=== PATIENT | female | born 1995 | race Caucasian/White ===

== ENCOUNTER → 2017-07-17 | Outpatient (CLI) | payer MEDICAID, OTHER | LOC: HPND 14:19 | PROVIDERS: ATTEND Obstetrics & Gynecology | DX: O36.5920 Maternal care for other known or suspected poor fetal growth, second trimester, not applicable or unspecified (principal); R63.6 Underweight | CPT/HCPCS: 76816 ==

== ENCOUNTER 2017-09-24 03:03 | Emergency (ER) | payer MEDICAID ==
--- NOTE | 2017-09-24 05:18 | PD ---
HPI Chief Complaint Contractions Travel History International Travel<30 Days: No Contact w/Intl Traveler<30Days: No Known Affected Area: No History of Present Illness HPI 22-year-old , IUP at 38.1 care uncomplicated Patient presents reporting onset of painful contractions at 11:45 PM last night. They increased in intensity and frequency to about every 6-8 minutes prior to her arrival. When she initially arrived she felt some contractions more frequently however she reports they have spaced out since she arrived. She reports that she was checked in the office yesterday and was 3 cm dilated. There were no aggravating or alleviating factors to the contractions and no attempted treatments. She denies any leaking fluid or vaginal bleeding. She reports good movement. She has no other complaints. Weeks Gestation: 38 Para: 0 : 1 History Past Medical History Medical History: Denies Significant Hx Obstetric History Obstetric History Past Surgical History Surgical History: No Previous Surgery Family History Family History: Negative Social History Alcohol Use: No Tobacco Use: No Substance Abuse: No Review of Systems Except as stated in HPI: all other systems reviewed are Neg Physical Exam Narrative GENERAL: Well-nourished, well-developed patient. Patient appears to be comfortable and does not appear uncomfortable at this time even during contractions SKIN: Warm and dry. HEAD: Normocephalic and atraumatic. EYES: No scleral icterus. No injection or drainage. ENT: No nasal drainage noted. Mucous membranes pink. Airway patent. NECK: Supple, trachea midline. No JVD. CARDIOVASCULAR: Regular rate and rhythm without murmurs, gallops, or rubs. RESPIRATORY: Breath sounds equal bilaterally. No accessory muscle use. BREASTS: Deferred ABDOMEN/GI: Abdomen soft, non-tender, bowel sounds present, no rebound, no guarding Gravid GENITOURINARY: External Genitalia: intact and normal in appearance. Normal BUS. No cervical or vaginal masses appreciated. Grossly normal rugated. Physiologic discharge noted. SVE 3/80/-2 with posterior cervix. Examination unchanged over greater than 1 hour. FHT's: heart tones are in the 130s with moderate long-term variability, good accelerations, no decelerations noted. The patient is reactive NST with FHR that is appropriate and reassuring for gestational age EXTREMITIES: No cyanosis or edema. BACK: Nontender without obvious deformity. No CVA tenderness. NEUROLOGICAL: Awake and alert. Motor and sensory grossly within normal limits. Five out of 5 muscle strength in all muscle groups. Normal speech. Psychiatric: Grossly normal memory and affect Musculoskeletal: Grossly normal range of motion, gait, muscle strength MDM Plan Assessment/plan: 1. IUP at 38.1 2. Contractions: Patient is having contractions at term however there is no evidence of active labor at this time with unchanged cervical exam. Discussed the natural progression of late phase labor with the patient. Discussed that the patient does not appear to be in active labor at this time with no evidence of cervical change management observation. Patient is given strict labor precautions and endorses she will return for contractions that have increased in intensity or frequency or any other concerns. 3. well-being: Reassuring testing with reactive NST. FHR reassuring and appropriate for gestational age. Patient endorses normal movement. kick counts daily 4. Follow up with primary OB in 2-3 days or sooner if needed Jigna Warner MD Sep 24, 2017 05:18
--- NOTE | 2017-09-24 06:29 | PD ---
MDM Diagnosis Diagnosis: Primary Impression: 38 weeks gestation of Additional Impression: False labor after 37 completed weeks of gestation Disposition: 01 DISCHARGE HOME Condition: Good Patient Instructions: General Instructions, Having Your Baby: The Labor Process (GEN), Movement (ED), Abdominal Pain in (ED) Departure Forms: Tests/Procedures Jigna Warner MD Sep 24, 2017 06:29
== END 2017-09-24 06:00 | disposition home or self-care (01) ==
LOC: HOBED 03:03
DX: O47.1 False labor at or after 37 completed weeks of gestation (principal); Z3A.38 38 weeks gestation of pregnancy
CPT/HCPCS: 59025

== ENCOUNTER 2017-09-26 03:34 | Inpatient (IN) | payer MEDICAID ==
[~2017-09-26] VITALS: Ht 172.7 cm; Wt 68.9 kg
--- NOTE | 2017-09-26 05:57 | PD ---
HPI Chief Complaint Contractions Travel History International Travel<30 Days: No Contact w/Intl Traveler<30Days: No Known Affected Area: No History of Present Illness HPI 22-year-old , IUP at 3 8.3 days with uncomplicated care presents reporting the onset of painful contractions about midnight. They increased in intensity and recurrent C to now about every 5-6 minutes. She reports that she was last checked in the office yesterday and was or centimeters dilated. There are no aggravating or alleviating factors. There are no attempted treatments. She denies any leaking fluid of fluid or vaginal bleeding. She reports that the baby has moved well yesterday. Weeks Gestation: 38 Para: 0 : 1 History Past Medical History Medical History: Denies Significant Hx Obstetric History Obstetric History Past Surgical History Surgical History: No Previous Surgery Family History Family History: Negative Social History Alcohol Use: No Tobacco Use: No Substance Abuse: No Review of Systems Except as stated in HPI: all other systems reviewed are Neg Physical Exam Narrative GENERAL: Well-nourished, well-developed patient. SKIN: Warm and dry. HEAD: Normocephalic and atraumatic. EYES: No scleral icterus. No injection or drainage. ENT: No nasal drainage noted. Mucous membranes pink. Airway patent. NECK: Supple, trachea midline. No JVD. CARDIOVASCULAR: Regular rate and rhythm without murmurs, gallops, or rubs. RESPIRATORY: Breath sounds equal bilaterally. No accessory muscle use. BREASTS: Deferred ABDOMEN/GI: Abdomen soft, non-tender, bowel sounds present, no rebound, no guarding Gravid GENITOURINARY: External Genitalia: intact and normal in appearance. Normal BUS. No cervical or vaginal masses appreciated, physiologic discharge, normal rugae, SVE 4/90/-1 in mid position FHT's: heart tones in the 130s with moderate long-term variability, good accelerations, no decelerations noted. Reactive heart rate tracing EXTREMITIES: No cyanosis or edema. BACK: Nontender without obvious deformity. No CVA tenderness. NEUROLOGICAL: Awake and alert. Motor and sensory grossly within normal limits. Five out of 5 muscle strength in all muscle groups. Normal speech. Psychiatric: Grossly normal memory and affect MDM Plan Assessment/plan: 1. IUP at 38.3 2. Contractions at term: Patient appears to be entering active labor and has made cervical change during her evaluation. Discussed with Dr. Asif, who was in agreement with admission, will admit to Dr. Asif . Discussed in brief risks of , risks/indications for delivery 3. well-being: Reassuring testing with reactive NST, FHR reassuring and appropriate for gestational age 4. GBS negative Jigna Warner MD Sep 26, 2017 05:57
[2017-09-26] MEDS ORDERED: MINERAL OIL 10 ML VIAL TOPICAL PRN (07:30)
[2017-09-26] MEDS ORDERED: SODIUM CHLORID 0.9% 500 ML INJ 500 ML IV PRN (07:30)
[2017-09-26] MEDS ORDERED: OXYTOCIN 30 UNITS-500ML PREMIX 500 ML IV ONE (07:30)
[2017-09-26] MEDS ORDERED: LACTATED RINGER'S 1000 ML INJ 1,000 ML IV PRN (07:30)
[2017-09-26] MEDS ORDERED: LIDOCAINE HCL 1% 50 ML VIAL INFIL PRN (07:30)
[2017-09-26] MEDS ORDERED: CITRIC ACID-SODIUM CITRATE LIQ 30 ML UDC PO SCH (07:30)
[2017-09-26] MEDS ORDERED: LIDOCAINE HCL 1% 50 ML VIAL I-DERMAL PRN (07:30)
[2017-09-26] MEDS ORDERED: SODIUM CHLOR 0.9% 1000 ML INJ 1,000 ML IV PRN (07:48)
[2017-09-26] MEDS ORDERED: LACTATED RINGER'S 1000 ML INJ 1,000 ML IV SCH (08:00)
[2017-09-26 08:03] LABS: AUTOMATED NEUTROPHIL # 10.5 TH/MM3 (1.8-7.7); BASOPHIL % 0.4 % (0.0-2.0); EOSINOPHIL # 0.1 TH/MM3 (0-0.4); EOSINOPHIL % 0.5 % (0.0-4.0); HEMO FLAGS DIFF FINAL; LYMPHOCYTE # 1.4 TH/MM3 (1.0-4.8); MEAN CELL VOLUME 89.6 FL (80.0-100.0); MEAN CORPUSCULAR HEMOGLOBIN 30.1 PG (27.0-34.0); MEAN CORPUSCULAR HGB CONC 33.6 % (32.0-36.0); MONO % 5.3 % (0.0-8.0); NEUT % 82.8 % (16.0-70.0); PLATELET COUNT 138 TH/MM3 (150-450); RED BLOOD COUNT 4.47 MIL/MM3 (4.00-5.30); RED CELL DISTRIBUTION WIDTH 13.6 % (11.6-17.2); WHITE BLOOD COUNT 12.7 TH/MM3 (4.0-11.0)
[2017-09-26 08:26] LABS: BLOOD, URINE NEG (NEG); GLUCOSE,URINE NEG (NEG); KETONE, URINE NEG (NEG); NITRITE,URINE NEG (NEG); URINE COLOR YELLOW (YELLW/STRAW)
[2017-09-26 08:27] LABS: BACTERIA, URINE RARE /hpf; COMMENT (UR) CULT NOT INDICATED; CULTURE IF INDICATED CULT NOT INDICATED; RBC, URINE 0-3 /hpf (0-3); SQUAMOUS EPITHELIAL CELL URINE 0-5 /hpf (0-5); WBC, URINE 0-2 /hpf (0-5)
--- NOTE | 2017-09-26 08:36 | HHI.PR ---
WEB SEARCH EVALUATOR Note Note Patient is a 22-year-old G1 at approximately 38 weeks and 3 days here today for labor, she was seen by the hospitalist on arrival, she was found to be 3-4 cm with bulging membranes and dinesh regularly, patient denies leakage of fluid Assessment plan #1 intrauterine : Category 1 tracing -Cephalic by ultrasound, EFW 6-1/2-7 pounds, waiting on records patient states GBS negative #2: Labor: Given gestational age and cervical dilation at this time all expectantly managed, discussed with her that may discharge home if no further change #3, Thrombocytopenia: Mild, blood pressure is normotensive, patient no signs or symptoms of preeclampsia, unsure of her baseline platelets will wait on her records. Alber Asif MD Sep 26, 2017 08:36
[2017-09-26 08:49] VITALS: BP 116/70; PULSE 87
[2017-09-26] MEDS ORDERED: MEASLES, MUMPS, RUBELLA VACCINE 0.5 ML VIAL SQ ONE (16:00)
[2017-09-26] MEDS ORDERED: DIPHTH/TETANUS/ACEL PERTUSSIS (BOOSTER) 0.5 ML VIAL/PFS IM ONE (16:00)
[2017-09-26] MEDS ORDERED: fentaNYL 2MCG-BUPIV 0.125% INJ 100 ML ONE (16:04)
--- NOTE | 2017-09-26 16:08 | HHI.PR ---
CRITICAL CARE REGISTERED NURSE Note Note Patient is a 22-year-old G1 at 38 weeks and 3 days admitted for labor. Patient is doing well, having painful contractions, no loss of fluid O: Exam: 7 cm, 80% effaced, -1 station, SROM this encounter, clear fluid Assessment plan #1 intrauterine : Category 1 tracing -Cephalic by ultrasound on arrival, EFW 6-1/2-7 pounds,GBS negative #2: Labor: Making spontaneous change, SROM this encounter at 1530, clear fluid. Does not desire epidural. Anticipate #3, Thrombocytopenia: Mild, blood pressures are normotensive, patient no signs or symptoms of preeclampsia, unsure of her baseline platelets, none recorded in her PNLs. Alber Asif MD Sep 26, 2017 16:08
[2017-09-26] MEDS ORDERED: BUPIVACAINE HCL PF 0.25% 30 ML VIAL ONE (16:48)
[2017-09-26] MEDS ORDERED: OXYTOCIN 30 UNITS-500ML PREMIX 500 ML ONE (17:21)
[2017-09-26] MEDS ORDERED: BENZOCAINE 20% TOPICAL SPRAY 60 ML CAN TOPICAL PRN (18:00)
[2017-09-26] MEDS ORDERED: SODIUM CHLORIDE 0.9% FLUSH 10 ML FLUSH IV FLUSH PRN (18:00)
[2017-09-26] MEDS ORDERED: ZOLPIDEM TARTRATE 5 MG TAB PO PRN (18:00)
[2017-09-26] MEDS ORDERED: ACETAMINOPHEN 325 MG TAB PO PRN (18:00)
[2017-09-26] MEDS ORDERED: WITCH HAZEL 50%/GLYCERIN 12.5% 40 PAD JAR TOPICAL PRN (18:00)
[2017-09-26] MEDS ORDERED: DOCUSATE SODIUM 50 MG/SENNA 8.6 MG TAB PO PRN (18:00)
[2017-09-26] MEDS ORDERED: OXYTOCIN 30 UNITS-500ML PREMIX 500 ML IV SCH (18:00)
[2017-09-26] MEDS ORDERED: oxyCODONE/ACETAMINOPHEN 5 MG/325 MG TAB PO PRN (18:00)
[2017-09-26] MEDS ORDERED: ALUMINUM/MAGNESIUM/SIMETH 30 ML CUP PO PRN (18:00)
[2017-09-26] MEDS ORDERED: ONDANSETRON ODT 4 MG TAB PO PRN (18:00)
--- NOTE | 2017-09-26 18:10 | HHI.PR ---
[employer] Note Note Prior to the room after vaginal delivery was performed by Dr. Erick Redding, patient was in stable condition, uterus was firm, inspected perineum, appreciated bilateral distal superior lateral vaginal lacerations. The lacerations were injected with 1% lidocaine for anesthesia. And repaired as follows: the left with 3-0 running chromic and the right with 3-0 running Vicryl. Repairs were hemostatic, uterus was firm, the patient was left in the birthing suite in stable condition. Please see separate delivery note by resident Alber Duran MD Sep 26, 2017 18:10
--- NOTE | 2017-09-26 18:16 | PD.OB.DELI ---
Weeks gestation: 38 Gest age assessed date: Sep 26, 2017 Gest age assessed time: 17:00 Pt started active labor?: Yes Medical induction of labor?: No Artificial rupture of membrane: No Anesthesia: Epidural Episiotomy: None Vaginal Delivery: Normal Presentation: Occiput anterior Nuchal Cord: None Delayed cord clamping (45 sec): Yes : Female Delivery date: Sep 26, 2017 Delivery time: 17:19 One Minute : 9 Five Minute : 9 Placenta: Spontaneous delivery, Intact, 3 vessel cord Laceration: Vaginal laceration Repair: Chromic running Estimated blood loss: 350 mL Additional Information Head delivered by maternal effort. No nuchal cord appreciated. Anterior shoulder delivered without complications. Bilateral superior vaginal lacerations repaired by Dr. Asif. (Erick Redding MD R1) Additional Information Agree with the above delivery note. (Alber Asif MD) Erick Redding MD R1 Sep 26, 2017 18:16 Alber Asif MD Sep 26, 2017 18:32
[2017-09-26 19:30] VITALS: BP 113/69; PULSE 107
[2017-09-26 19:37] VITALS: TEMP 97.6
[2017-09-26 19:38] VITALS: RESP 18
[2017-09-26] MEDS ORDERED: IBUP-232 PO (19:44)
--- NOTE | 2017-09-26 19:45 | HHI.DCPOC ---
Discharge Care Plan Diagnosis: (1) Normal vaginal delivery Your Health Problems Are: Vaginal delivery Report Symptoms to Your Doctor -Temperature above 100.5 degrees -Redness, of incision or excessive or foul smelling drainage -Unusual pain or calf pain -Increased vaginal bleeding -Painful or difficulty urinating -Feelings of extreme sadness or anxiety after 2 weeks Goals to Promote Your Health * To prevent worsening of your condition and complications * To maintain your health at the optimal level Directions to Meet Your Goals Take your medications as prescribed Follow your dietary instruction Follow activity as directed Ensure plenty of rest for recovery Drink fluids for hydration Keep your appointments as scheduled Take your immunizations and boosters as scheduled If your symptoms worsen call your PCP, if no PCP go to Urgent Care Center or Emergency Room Smoking is Dangerous to Your Health. Avoid second hand smoke Call the 24-hour crisis hotline for domestic abuse at Alber Asif MD Sep 26, 2017 19:45
[2017-09-26 21:00] VITALS: BP 123/63; PULSE 97; RESP 20; TEMP 98
[2017-09-26] MEDS ORDERED: SODIUM CHLORIDE 0.9% FLUSH 10 ML FLUSH IV FLUSH SCH (21:00)
[2017-09-26] MEDS: IBUPROFEN 800 MG TAB PO PRN (21:16)
[2017-09-27] MEDS: IBUPROFEN 800 MG TAB PO PRN ×2 (06:09→14:05)
--- NOTE | 2017-09-27 07:17 | HHI.OB ---
Subjective Post Day: 1 Remarks Patient doing well, vaginal bleeding less than cycle, pain controlled, voiding without difficulty Objective Vitals/I&O Vital Signs Date Time Temp Pulse Resp B/P (MAP) Pulse Ox O2 Delivery O2 Flow Rate FiO2 09/26/17 21:00 98.0 97 20 123/63 (83) 09/26/17 19:38 18 09/26/17 19:37 97.6 09/26/17 19:30 107 113/69 (84) 09/26/17 08:49 87 116/70 (85) Objective Remarks GENERAL: Well-nourished, well-developed patient. CARDIOVASCULAR: Regular rate and rhythm without murmurs, gallops, or rubs. RESPIRATORY: Breath sounds equal bilaterally. No accessory muscle use. ABDOMEN/GI: Abdomen soft, non-tender. Fundus: Firm, non-tender at umbilicus. GENITOURINARY: Light to moderate bleeding. EXTREMITIES: No cyanosis or edema, non-tender, without signs of DVT. Medications and IVs Current Medications Medications (Trade) Dose Ordered Sig/Sami Route Start Time Stop Time Status Last Admin (NS Flush) 2 ml BID IV FLUSH 09/26/17 21:00 (NS Flush) 2 ml UNSCH PRN IV FLUSH 09/26/17 18:00 (Tylenol) 650 mg Q4H PRN PO 09/26/17 18:00 (Motrin) 800 mg Q8H PRN PO 09/26/17 18:00 09/27/17 06:09 (Percocet 5-325 Mg) 1 tab Q4H PRN PO 09/26/17 18:00 (Americaine 20% Top Spr) 1 spray Q4H PRN TOPICAL 09/26/17 18:00 09/26/17 21:17 (Tucks Pads) 1 applic QID PRN TOPICAL 09/26/17 18:00 09/26/17 21:17 (Nikky-Colace) 2 tab Q12H PRN PO 09/26/17 18:00 (Ambien) 5 mg HS PRN PO 09/26/17 18:00 (Mag-Al Plus Susp Liq) 15 ml Q8H PRN PO 09/26/17 18:00 (Zofran Odt) 4 mg Q6H PRN PO 09/26/17 18:00 (Flu (Quadrivalent) Vaccine Inj) 0.5 ml ONCE ONCE IM 09/28/17 10:00 09/28/17 10:01 Assessment/Plan Assessment and Plan 22-year-old 011 status post at 30 weeks and 3 days #1 day #1: The milestones, anticipate discharge home in the next 24 hours. Discussed precautions, expectations and need for follow-up. #2 Thrombocytopenia: Baseline of 204 in April of this year, likely gestational. #3: Female, Rh+, breast-feeding Alber Asif MD Sep 27, 2017 07:17
[2017-09-27 08:00] VITALS: BP 107/66; PULSE 95; RESP 18; TEMP 98; O2SAT 98
[2017-09-28] MEDS ORDERED: INFLUENZA VIRUS VACCINE (QUADRIVALENT) 0.5 ML SYR IM ONE (10:00)
== END 2017-09-27 18:55 | disposition home or self-care (01) | DRG 775 ==
LOC: HOBED 03:34 → H2EA 07:48 → H1EA 20:06
PROVIDERS: ADMIT Obstetrics & Gynecology; ATTEND Obstetrics & Gynecology
PROC: 10E0XZZ Delivery of Products of Conception, External Approach (ICD-10-PCS; principal; 2017-09-26)
PROC: 0KQM0ZZ Repair Perineum Muscle, Open Approach (ICD-10-PCS; 2017-09-26)
DX: O70.1 Second degree perineal laceration during delivery (principal); D69.6 Thrombocytopenia, unspecified; O99.12 Other diseases of the blood and blood-forming organs and certain disorders involving the immune mechanism complicating childbirth; Z3A.38 38 weeks gestation of pregnancy; Z37.0 Single live birth
CPT/HCPCS: 59025; 80307; 81001; 85025; 86900; 86901; J2590; J7120